=== PATIENT | male | born 1985 | race African-American/Black ===

== ENCOUNTER 2017-01-01 12:06 | Emergency (ER) | payer OTHER ==
[~2017-01-01] VITALS: Ht 180.3 cm; Wt 108.9 kg
--- NOTE | ~2017-01-01 | EKG ---
PATIENT: MEMO OTOOLE UNIT #: [id number] Ventricular Rate: 77 BPM Atrial Rate: 77 BPM P-R Interval: 126 ms QRS Duration: 84 ms Q-T Interval: 362 ms QTC Calculation(Bezet): 409 ms P Kiefer: 40 degrees Calculated R Kiefer: 38 degrees Calculated T Kiefer: 36 degrees Diagnosis Line: Normal sinus rhythm with sinus arrhythmia Diagnosis Line: Normal ECG Diagnosis Line: No previous ECGs available Diagnosis Line: Confirmed by NAYLA TURNER MD ([id number]) on 01/01/2017 Diagnosis Line: 5:02:58 PM INTERPRETING MD: YUE BLAKE
[2017-01-01 13:14] LABS: POC - CKMB 1.1 ng/mL (0.0-7.9); POC - TROPONIN <0.05 ng/mL (<=0.05)
[2017-01-01 13:18] LABS: BASOPHIL% 0.4 % (0-2.5); EOSINOPHIL% 1.5 % (0.0-7.0); HEMATOCRIT 44.3 % (38.0-50.0); HEMOGLOBIN 15.1 gm/dL (13.0-16.0); LYMPHOCYTE# 1.1 X10e3 (1.0-3.5); LYMPHOCYTE% 33.7 % (17.0-45.0); MEAN CELL VOLUME 80.5 FL (83-96); MEAN CORPUSCULAR HEMOGLOBIN 27.5 PG (28-34); MEAN CORPUSCULAR HGB CONC 34.1 g/dL (30-36); MEAN PLATELET VOLUME 7.9 FL (6.5-11.5); MONOCYTE# 0.4 X10e3 (0-1.0); MONOCYTE% 10.7 % (3.0-12.0); NEUTROPHIL# 1.8 X10e3 (1.5-7.1); NEUTROPHIL% 53.7 % (40-75); PLATELET COUNT 218 X10e3 (140-420); RED BLOOD COUNT 5.51 X10e (3.90-5.60); RED CELL DISTRIBUTION WIDTH 13.3 % (11.0-15.5); WHITE BLOOD COUNT 3.4 X10e3 (4.0-10.5)
[2017-01-01 13:19] LABS: DIFF IND NO
[2017-01-01 13:25] LABS: URINE SOURCE CLEAN CATCH
[2017-01-01 13:31] LABS: URINE APPEARANCE CLEAR; URINE BILIRUBIN NEG (NEG); URINE BLOOD NEG (NEG); URINE COLOR YELLOW; URINE GLUCOSE NEG (NEG); URINE KETONE NEG (NEG); URINE LEUKOCYTE ESTERASE NEG (NEG); URINE NITRATE NEG (NEG); URINE PH 6.5 (5-8); URINE PROTEIN NEG (NEG); URINE SPECIFIC GRAVITY 1.022 (1.003-1.035)
[2017-01-01 13:57] LABS: BUN/CREATININE RATIO 13.33; CALCIUM SERUM 9.2 mg/dL (8.4-10.2); CREATININE SERUM 0.9 mg/dL (0.6-1.4); GLOM FILT RATE Estimated 114.2 mL/min (>60); POTASSIUM 4.3 mmol/L (3.5-5.1)
== END 2017-01-01 15:25 | disposition home or self-care (01) ==
LOC: CED 12:06
PROVIDERS: Emergency Medicine
DX: R55 Syncope and collapse (principal); Z88.6 Allergy status to analgesic agent
CPT/HCPCS: 36415; 80048; 81003; 82553; 84484; 85025; 93005; 96360; 99284